=== PATIENT | female | born 1960 | race Caucasian/White ===

== ENCOUNTER 2016-12-16 14:56 | Outpatient (CLI) | payer OTHER | END 2016-12-16 14:57 | disposition home or self-care (01) | DX: M85.80 Other specified disorders of bone density and structure, unspecified site (principal) ==

== ENCOUNTER 2016-12-16 14:58 | Outpatient (CLI) | payer OTHER | END 2016-12-16 14:59 | disposition home or self-care (01) | DX: Z12.31 Encounter for screening mammogram for malignant neoplasm of breast (principal); R92.8 Other abnormal and inconclusive findings on diagnostic imaging of breast ==

== ENCOUNTER 2017-01-05 12:49 | Outpatient (CLI) | payer OTHER | END 2017-01-05 12:50 | disposition home or self-care (01) | DX: R92.8 Other abnormal and inconclusive findings on diagnostic imaging of breast (principal) ==

== ENCOUNTER 2017-01-19 09:45 | Outpatient (CLI) | payer OTHER | END 2017-01-19 09:46 | disposition home or self-care (01) | DX: N60.12 Diffuse cystic mastopathy of left breast (principal) ==

== ENCOUNTER 2018-07-26 08:29 | Outpatient (CLI) | payer OTHER ==
[2018-07-26 09:09] LABS: BASOPHILS % (AUTO) 0.4 %; EOSINOPHILS # (AUTO) 0.2 10^3/uL (0.0-0.7); EOSINOPHILS % (AUTO) 2.6 %; HGB - HEMOGLOBIN 13.1 g/dL (12.0-16.0); LYMPHOCYTES # (AUTO) 2.1 10^3/uL (1.5-3.5); LYMPHOCYTES % (AUTO) 31.7 %; MEAN CORPUSCULAR HEMOGLOBIN 31.1 pg (27.0-31.0); MEAN CORPUSCULAR HGB CONC 34.2 g/dL (32.0-36.0); MEAN CORPUSCULAR VOLUME 90.7 fL (81.0-99.0); MEAN PLATELET VOLUME 6.8 fL (7.9-10.8); MONOCYTES # (AUTO) 0.6 10^3/uL (0.0-1.0); MONOCYTES % (AUTO) 9.6 %; NEUTROPHILS # (AUTO) 3.6 10^3/uL (1.5-6.6); NEUTROPHILS % (AUTO) 55.7 %; PLT - PLATELET COUNT 290 10^3/uL (130-450); RED BLOOD COUNT 4.22 10^6/uL (4.20-5.40); RED CELL DISTRIBUTION WIDTH 14.3 % (12.0-15.0); WHITE BLOOD COUNT 6.5 x10^3/uL (4.8-10.8)
[2018-07-26 09:37] LABS: ALBUMIN 4.3 g/dL (3.2-5.5); ALBUMIN/GLOBULIN RATIO 1.6 (1.0-2.2); ALKALINE PHOSPHATASE 63 IU/L (42-121); ALT ALANINE AMINOTRANSFERASE 26 IU/L (10-60); AST ASPARTATE AMINOTRANSFERASE 22 IU/L (10-42); BILIRUBIN,TOTAL 0.6 mg/dL (0.2-1.0); BUN - BLOOD UREA NITROGEN 18 mg/dL (6-20); CARBON DIOXIDE - CO2 27 mmol/L (21-32); CHLORIDE 107 mmol/L (101-111); CHOL/HDL RATIO 3.3 (<4.4); CHOLESTEROL 258 mg/dL; CREATININE 0.8 mg/dL (0.4-1.0); GFR - MDRD 74 (>89); GLUCOSE 103 mg/dL (70-100); HDL CHOLESTEROL 78 mg/dL; LDL CHOLESTEROL,CALCULATED 167 mg/dL; LDL/HDL RATIO 2.1 (<4.4); SODIUM 141 mmol/L (135-145); VLDL CHOLESTEROL 13 mg/dL
== END 2018-07-26 08:30 | disposition home or self-care (01) ==
LOC: LAB 08:29
PROVIDERS: ATTEND Physician Assistant Medical
DX: Z00.00 Encounter for general adult medical examination without abnormal findings (principal); B02.9 Zoster without complications
CPT/HCPCS: 36415; 80053; 80061; 81599; 83721; 84443; 85025

== ENCOUNTER 2018-10-05 16:24 | Outpatient (CLI) | payer OTHER | END 2018-10-05 16:25 | disposition home or self-care (01) | LOC: LAB 16:24 | PROVIDERS: ATTEND Physician Assistant Medical | DX: Z00.00 Encounter for general adult medical examination without abnormal findings (principal) | CPT/HCPCS: 36415; 84443 ==

== ENCOUNTER 2018-10-17 16:22 | Outpatient (CLI) | payer OTHER ==
--- NOTE | 2018-10-18 08:39 | Mammography Report ---
Reason: SCREENING MAMMO Procedure Date: 10/17/2018 Accession Number: [id number] / [id number] Procedure: SHANKAR - Screening Mammo w/Sanchez CPT Code: FULL RESULT: EXAM: Screening Mammo w/Sanchez DATE: 10/17/2018 4:56 PM CLINICAL HISTORY: Screening encounter. History of late childbearing. TECHNIQUE: Bilateral CC and MLO views were obtained. COMPARISON: 01/05/2017 through 03/17/2015. FINDINGS: The breasts demonstrate scattered fibroglandular densities bilaterally. Compared to 2017 there are 3 new well-circumscribed isodense masses in the left breast. A 0.7 cm 3:00 mass 5 cm from the nipple as well as an isodense 0.9 cm and an isodense 1 cm mass centrally approximately 4 cm from the nipple. Given their well-circumscribed margins, absence of calcifications or architectural distortion, multiplicity and timeline these could represent cysts though this is not definitely established. Focused left breast ultrasound for further evaluation of all 3 masses is required. No suspicious masses, clustered microcalcifications, or regions of architectural distortion are identified in the right breast. IMPRESSION: Incomplete examination RECOMMENDATION: Additional evaluation of the left breast with focused ultrasound of all 3 findings described above. BIRADS CATEGORY 0: Incomplete examination STANDARD QUALIFYING STATEMENTS: 1. This examination was not reviewed with the aid of Computer-Aided Detection (CAD). 2. A negative or benign imaging report should not preclude biopsy if clinically suspicious findings are present. 3. Dense breasts may obscure an underlying neoplasm. 4. This examination was reviewed with the aid of 3D breast imaging (tomosynthesis).
== END 2018-10-17 16:23 | disposition home or self-care (01) ==
LOC: DI 16:22
DX: Z12.31 Encounter for screening mammogram for malignant neoplasm of breast (principal)
CPT/HCPCS: 77063; 77067

== ENCOUNTER 2018-11-08 13:02 | Outpatient (CLI) | payer OTHER ==
--- NOTE | 2018-11-08 16:02 | Mammography Report ---
Reason: ABN MAMMO Procedure Date: 11/08/2018 Accession Number: [id number] / [id number] Procedure: SHANKAR - Diag Special Views Dig LT CPT Code: FULL RESULT: EXAM: Diag Special Views Dig LT DATE: 11/08/2018 2:03 PM CLINICAL HISTORY: 58-year-old female with history of breast cysts recalled from screening for findings of multiple new left breast nodules. TECHNIQUE: Left breast spot MLO, spot CC, ML views were obtained COMPARISON: 10/15/2018 through 03/17/2015. FINDINGS: The left breast demonstrates scattered fibroglandular densities. Spot views confirm the findings of the most recent mammograms with multiple well-circumscribed isodense masses measuring 1 cm or less in the upper outer left breast. Focused left breast ultrasound is performed which demonstrates multiple simple cysts by ultrasound criteria in the left breast upper outer quadrant including well-circumscribed margins, dimensions not taller than wide, imperceptibly thin daniel and uniformly increased through transmission without evidence of internal echoes or mural nodule. Findings are consistent with simple left breast cysts. No suspicious calcifications, architectural distortion or masses are identified on mammography or on ultrasound. IMPRESSION: Benign findings RECOMMENDATION: Recommend routine annual Screening mammography unless otherwise clinically indicated. BIRADS CATEGORY 2: Benign findings STANDARD QUALIFYING STATEMENTS: 1. This examination was not reviewed with the aid of Computer-Aided Detection (CAD). 2. A negative or benign imaging report should not delay biopsy if clinically suspicious findings are present. Consider surgical consultation if warrented. More than 5% of cancers are not identified by imaging. 3. Dense breasts may obscure an underlying neoplasm. 4. This examination was reviewed with the aid of 3D imaging (tomography).
--- NOTE | 2018-11-12 07:17 | Ultrasound Report ---
Reason: ABN MAMMO Procedure Date: 11/08/2018 Accession Number: [id number] / [id number] Procedure: US - Breast Unilateral Limited CPT Code: FULL RESULT: FINDINGS: IMPRESSION: For results, please reference the Diagnostic Special Views report dated 11/08/2018.
== END 2018-11-08 13:03 | disposition home or self-care (01) ==
LOC: DI 13:02
PROVIDERS: ATTEND Physician Assistant Medical
DX: N60.12 Diffuse cystic mastopathy of left breast (principal)
CPT/HCPCS: 76642

== ENCOUNTER 2019-03-28 08:03 | Outpatient (CLI) | payer OTHER ==
[2019-03-28 08:36] LABS: ALBUMIN 4.3 g/dL (3.2-5.5); ALBUMIN/GLOBULIN RATIO 1.5 (1.0-2.2); ALKALINE PHOSPHATASE 65 IU/L (42-121); ALT ALANINE AMINOTRANSFERASE 25 IU/L (10-60); AST ASPARTATE AMINOTRANSFERASE 21 IU/L (10-42); BILIRUBIN,TOTAL 0.7 mg/dL (0.2-1.0); BUN - BLOOD UREA NITROGEN 21 mg/dL (6-20); CALCIUM 9.1 mg/dL (8.5-10.3); CARBON DIOXIDE - CO2 27 mmol/L (21-32); CHLORIDE 103 mmol/L (101-111); CHOL/HDL RATIO 3.2 (<4.4); CHOLESTEROL 262 mg/dL; CREATININE 0.7 mg/dL (0.4-1.0); GFR - MDRD 86 (>89); GLUCOSE 107 mg/dL (70-100); HDL CHOLESTEROL 81 mg/dL; LDL CHOLESTEROL,CALCULATED 163 mg/dL; SODIUM 139 mmol/L (135-145); TOTAL PROTEIN 7.2 g/dL (6.7-8.2); VLDL CHOLESTEROL 18 mg/dL
== END 2019-03-28 08:04 | disposition home or self-care (01) ==
LOC: LAB 08:03
PROVIDERS: ATTEND Physician Assistant Medical
DX: E78.5 Hyperlipidemia, unspecified (principal)
CPT/HCPCS: 36415; 80053; 80061; 83721

== ENCOUNTER 2020-01-27 18:50 | Outpatient (CLI) | payer OTHER | END 2020-01-27 18:51 | disposition home or self-care (01) | LOC: COV 18:50 | PROVIDERS: ATTEND Family Medicine | DX: R05 Cough (principal); R50.9 Fever, unspecified | CPT/HCPCS: 81599 ==

== ENCOUNTER 2020-03-02 16:45 | Outpatient (CLI) | payer OTHER | END 2020-03-02 16:46 | disposition home or self-care (01) | LOC: COV 16:45 | PROVIDERS: ATTEND Family Medicine | DX: R50.9 Fever, unspecified (principal); R06.02 Shortness of breath; M79.10 Myalgia, unspecified site; R53.83 Other fatigue; J02.9 Acute pharyngitis, unspecified; R43.8 Other disturbances of smell and taste; Z20.828 Contact with and (suspected) exposure to other viral communicable diseases | CPT/HCPCS: 81599 ==

== ENCOUNTER 2021-04-22 08:00 | Outpatient (CLI) | payer OTHER | END 2021-04-22 08:01 | disposition home or self-care (01) | LOC: LAB.N 08:00 | PROVIDERS: ATTEND Physician Assistant Medical | DX: R30.0 Dysuria (principal) | CPT/HCPCS: 87086 ==

== ENCOUNTER 2021-04-26 08:00 | Outpatient (CLI) | payer OTHER ==
[2021-04-26 22:32] LABS: BACTERIAL VAGINOSIS DNA NEGATIVE (NEGATIVE); CANDIDA GLABRATA DNA NEGATIVE (NEGATIVE); CANDIDA GROUP DNA NEGATIVE (NEGATIVE); CANDIDA KRUSEI DNA NEGATIVE (NEGATIVE); TRICHOMONAS VAGINALIS DNA NEGATIVE (NEGATIVE)
[2021-04-26 23:21] LABS: CHLAMYDIA TRACHOMATIS DNA NEGATIVE (NEGATIVE); NEISSERIA GONORRHOEAE DNA NEGATIVE (NEGATIVE); TRICHOMONAS VAGINALIS DNA NEGATIVE (NEGATIVE)
== END 2021-04-26 23:59 | disposition home or self-care (01) ==
LOC: LAB.N 08:00
PROVIDERS: ATTEND Family Medicine
DX: N76.0 Acute vaginitis (principal)
CPT/HCPCS: 87491; 87591; 87661; 87801

== ENCOUNTER 2021-05-31 15:50 | Outpatient (CLI) | payer OTHER ==
--- NOTE | 2021-06-03 12:13 | Mammography Report ---
BILATERAL DIGITAL SCREENING MAMMOGRAM 3D/2D: 05/31/2021 CLINICAL: Routine screening. Comparison is made to exams dated: 11/08/2018 mammogram, 11/08/2018 ultrasound, 10/17/2018 mammogram, 01/09/2017 ultrasound, 01/05/2017 mammogram, and 12/16/2016 mammogram - [facility]. The t issue of both breasts is heterogeneously dense. This may lower the sensitivity of mammography. There is an oval equal density mass with a spiculated margin in the right breast at 9 o'clock anterio r depth. There also is an oval low density mass with an obscured and circumscribed margin in the right breast at 12 o'clock middle depth. There is an oval equal density focal asymmetry with an indistinct margin in the left breast at 7 o'cl ock anterior depth. No other significant masses or calcifications are seen in either breast. IMPRESSION: INCOMPLETE: NEEDS ADDITIONAL IMAGING EVALUATION The oval equal density mass in the right breast at 9 o'clock anterior depth is indeterminate. Mediol ateral and spot compression views as well as additional views with possible ultrasound are recommende d. The oval low density mass in the right breast at 12 o'clock middle depth is indeterminate. Mediolate ral and spot compression views as well as additional views with possible ultrasound are recommended. The oval equal density focal asymmetry in the left breast at 7 o'clock anterior depth is indeterminat e. Mediolateral and spot compression views as well as additional views with possible ultrasound are recommended. This exam was interpreted at Station ID: [id number]. NOTE: For mammograms, a report in lay terms will be sent to the patient. Approximately 15% of breast malignancies will not be visualized mammographically. In the management of a palpable breast mass, a negative mammogram must not discourage biopsy of a clinically suspicious lesion. Electronically Signed By: David Danielson M.D. ddp/penrad:06/02/2021 08:49:25 ACR BI-RADS Category 0: Incomplete 3340F PARENCHYMAL PATTERN: (D) - The breast(s) demonstrate(s) heterogeneously dense fibroglandular parenchy ma. BI-RADS CATEGORY: (0) - 0 Mammo and [place] [id number] Immediate follow-up LATERALITY: (B)
== END 2021-05-31 15:51 | disposition home or self-care (01) ==
LOC: DI.N 15:50
DX: Z12.31 Encounter for screening mammogram for malignant neoplasm of breast (principal); N63.11 Unspecified lump in the right breast, upper outer quadrant

== ENCOUNTER 2021-06-18 07:48 | Outpatient (CLI) | payer OTHER ==
--- NOTE | 2021-06-21 16:38 | Ultrasound Report ---
LIMITED ULTRASOUND OF LEFT BREAST: 06/18/2021 CLINICAL: Short term follow up for bilateral breasts. Comparison is made to exams dated: 11/08/2018 ultrasound and 01/09/2017 ultrasound - [facility]. Color flow and real-time ultrasound of the left breast 5-7 o'clock region were performed. Phillips scal e images of the real-time examination were reviewed. No significant abnormalities were seen sonographically in the left breast. IMPRESSION: BENIGN There is no sonographic evidence of malignancy. There is no abnormality seen in the left breast to correspond with the mammography finding which like ly represents normal fibroglandular tissue. A 1 year screening mammogram is recommended. A right breast biopsy is recommended for right breast findings described in separate report. Findings and recommendations were conveyed to the patient during today's evaluation. This exam was interpreted at Station ID: [id number]. Electronically Signed By: Jimi Real M.D. aty/:06/18/2021 10:34:40 Ultrasound BI-RADS: 2 Benign BI-RADS CATEGORY: (2) - 2 RECOMMENDATION: (ANNUAL) - Recommend routine annual screening mammography. [id number] 1 year screening LATERALITY: (B)
--- NOTE | 2021-06-21 16:38 | Ultrasound Report ---
LIMITED ULTRASOUND OF RIGHT BREAST AND AXILLA: 06/18/2021 CLINICAL: Short term follow up for bilateral breasts. No prior exams were available for comparison. Color flow ultrasound of the right breast 9 o'clock, 12 o'clock, and axilla regions was performed. G ray scale images of the real-time examination were reviewed. There is a 0.6 cm x 0.4 cm x 0.5 cm irregular mass with an angular margin in the right breast at 9 o' clock anterior depth 3 cm from the nipple. This irregular mass is hypoechoic with no posterior acous tic shadowing or enhancement. This likely correlates with mammography findings. Color flow imaging demonstrates that there is no vascularity present. There also is a 1 cm x 0.8 cm x 0.9 cm oval cyst in the right breast at 12 o'clock middle depth 4 cm from the nipple. This oval cyst is hypoechoic with posterior acoustic enhancement. This correlates with mammography findings. Color flow imaging demonstrates that there is no vascularity present. No significant abnormalities were seen sonographically in the right axilla. IMPRESSION: SUSPICIOUS OF MALIGNANCY The 0.6 cm x 0.4 cm x 0.5 cm irregular mass in the right breast at 9 o'clock anterior depth is suspic ious of malignancy. An ultrasound guided biopsy is recommended. The 1 cm x 0.8 cm x 0.9 cm oval cyst in the right breast at 12 o'clock middle depth most likely is a complicated cyst and is probably benign. A follow-up ultrasound in 6 months is recommended. Findings and recommendations were discussed with the patient by Dr. Ortiz during today's examination . This exam was interpreted at Station ID: [id number]. Electronically Signed By: Jimi Real M.D. aty/:06/18/2021 10:37:40 Ultrasound BI-RADS: 4 Suspicious for malignancy BI-RADS CATEGORY: (4) - 4 None [id number] Immediate follow-up LATERALITY: ()
--- NOTE | 2021-06-21 16:38 | Mammography Report ---
BILATERAL DIGITAL DIAGNOSTIC MAMMOGRAM 3D/2D: 06/18/2021 CLINICAL: Patient returns today to evaluate a focal asymmetry in the right breast. Patient returns to day to evaluate a focal asymmetry in the left breast. Comparison is made to exams dated: 05/31/2021 mammogram, 11/08/2018 ultrasound, 11/08/2018 mammogram, 10/2018 mammogram, 01/09/2017 ultrasound, and 01/05/2017 mammogram - [facility]. The t issue of both breasts is heterogeneously dense. This may lower the sensitivity of mammography. There is a 0.7 cm irregular equal density mass with a spiculated margin in the right breast at 9 o'cl ock anterior depth. This is seen in additional views. There is architectural distortion associated with the mass. There also is a 1.3 cm oval low density mass with an obscured margin in the right breast at 12 o'cloc k middle depth. This is seen in additional views. This is less prominent. There is an oval equal density focal asymmetry with an obscured margin in the left breast at 7 o'cloc k anterior depth. This is less prominent. No other significant masses or calcifications are seen in either breast. IMPRESSION: INCOMPLETE: NEEDS ADDITIONAL IMAGING EVALUATION The 0.7 cm irregular equal density mass in the right breast at 9 o'clock anterior depth is indetermin ate. The 1.3 cm oval low density mass in the right breast at 12 o'clock middle depth is indeterminate. The oval equal density focal asymmetry in the left breast at 7 o'clock anterior depth is indeterminat e. An ultrasound is recommended for further evaluation of the above three findings and is scheduled to immediately follow this examination. This exam was interpreted at Station ID: [id number]. NOTE: For mammograms, a report in lay terms will be sent to the patient. Approximately 15% of breast malignancies will not be visualized mammographically. In the management of a palpable breast mass, a negative mammogram must not discourage biopsy of a clinically suspicious lesion. Electronically Signed By: Jimi Real M.D. aty/:06/18/2021 08:56:54 ACR BI-RADS Category 0: Incomplete 3340F PARENCHYMAL PATTERN: (D) - The breast(s) demonstrate(s) heterogeneously dense fibroglandular paramy evans. BI-RADS CATEGORY: (0) - 0 Ultrasound [id number] Immediate follow-up LATERALITY: (B)
== END 2021-06-18 07:49 | disposition home or self-care (01) ==
LOC: DI 07:48
PROVIDERS: ATTEND Physician Assistant Medical
DX: Z00.00 Encounter for general adult medical examination without abnormal findings (principal); R92.8 Other abnormal and inconclusive findings on diagnostic imaging of breast; N63.15 Unspecified lump in the right breast, overlapping quadrants; N60.01 Solitary cyst of right breast
CPT/HCPCS: 36415; 80053; 80061; 83721; 84443; 85025

== ENCOUNTER 2021-06-18 07:50 | Outpatient (CLI) | payer OTHER ==
[2021-06-18 11:05] LABS: BASOPHILS % (AUTO) 0.4 %; EOSINOPHILS # (AUTO) 0.1 10^3/uL (0.0-0.7); EOSINOPHILS % (AUTO) 1.6 %; HCT - HEMATOCRIT 41.7 % (37.0-47.0); HGB - HEMOGLOBIN 13.7 g/dL (12.0-16.0); LYMPHOCYTES # (AUTO) 2.4 10^3/uL (1.5-3.5); LYMPHOCYTES % (AUTO) 33.1 %; MEAN CORPUSCULAR HEMOGLOBIN 30.6 pg (27.0-31.0); MEAN CORPUSCULAR HGB CONC 32.9 g/dL (32.0-36.0); MEAN CORPUSCULAR VOLUME 93.3 fL (81.0-99.0); MEAN PLATELET VOLUME 8.4 fL (7.9-10.8); MONOCYTES # (AUTO) 0.7 10^3/uL (0.0-1.0); MONOCYTES % (AUTO) 9.5 %; PLT - PLATELET COUNT 293 10^3/uL (130-450); RED BLOOD COUNT 4.47 10^6/uL (4.20-5.40); RED CELL DISTRIBUTION WIDTH 13.2 % (12.0-15.0); WHITE BLOOD COUNT 7.3 x10^3/uL (4.8-10.8)
[2021-06-18 11:24] LABS: ALBUMIN 4.9 g/dL (3.2-5.5); ALBUMIN/GLOBULIN RATIO 1.7 (1.0-2.2); ALKALINE PHOSPHATASE 63 IU/L (42-121); ALT ALANINE AMINOTRANSFERASE 31 IU/L (10-60); AST ASPARTATE AMINOTRANSFERASE 25 IU/L (10-42); BILIRUBIN,TOTAL 0.8 mg/dL (0.2-1.0); BUN - BLOOD UREA NITROGEN 17 mg/dL (6-20); CALCIUM 9.6 mg/dL (8.5-10.3); CARBON DIOXIDE - CO2 27 mmol/L (21-32); CHLORIDE 105 mmol/L (101-111); CHOL/HDL RATIO 3.4 (<4.4); CHOLESTEROL 293 mg/dL; CREATININE 0.8 mg/dL (0.4-1.0); GFR - MDRD 73 (>89); GLUCOSE 111 mg/dL (70-100); HDL CHOLESTEROL 87 mg/dL; LDL CHOLESTEROL,CALCULATED 187 mg/dL; LDL/HDL RATIO 2.1 (<4.4); POTASSIUM 3.9 mmol/L (3.5-5.0); SODIUM 143 mmol/L (135-145); TOTAL PROTEIN 7.8 g/dL (6.7-8.2); TRIGLYCERIDES 93 mg/dL; VLDL CHOLESTEROL 19 mg/dL
[2021-06-18 11:35] LABS: THYROID STIMULATING HORMONE 3.36 uIU/mL (0.34-5.60)
== END 2021-06-18 07:51 | disposition home or self-care (01) ==
LOC: LAB 07:50
PROVIDERS: ATTEND Physician Assistant Medical
DX: Z00.00 Encounter for general adult medical examination without abnormal findings (principal)
CPT/HCPCS: 36415; 80053; 80061; 83721; 84443; 85025

== ENCOUNTER 2021-06-25 08:47 | Outpatient (CLI) | payer OTHER ==
[~2021-06-25 08:47] MED LIST: BUFFERED LIDOCAINE 10 ML SYRINGE ONE; LIDOCAINE MPF 1%-EPI 1:200000 30 ML VIAL ONE
[2021-06-25] MEDS ORDERED: BUFFERED LIDOCAINE 10 ML SYRINGE IU ONE (10:35)
[2021-06-25] MEDS ORDERED: LIDOCAINE MPF 1%-EPI 1:200000 30 ML VIAL SUBQ ONE (11:00)
--- NOTE | 2021-06-28 06:51 | Mammography Report ---
UNILATERAL RIGHT DIGITAL DIAGNOSTIC MAMMOGRAM 3D/2D: 06/25/2021 CLINICAL: Post right breast ultrasound biopsy, clip placment imaging. Comparison is made to exams dated: 06/18/2021 ultrasound, 06/18/2021 mammogram, 05/31/2021 mammogram, mammogram, and 06/25/2021 ultrasound biopsy - [facility]. The tissue of rig ht breast is heterogeneously dense. This may lower the sensitivity of mammography. There is a marker clip in the right breast at 10 o'clock middle depth. This marker clip placement is migrated from the biopsy site by approximately 1.8 cm posteriorly and 2.0 cm superiorly. No other significant masses or calcifications are seen in the breast. IMPRESSION: POST PROCEDURE MAMMOGRAM FOR MARKER PLACEMENT Marker clip placement in the right breast at 10 o'clock middle depth is migrated from biopsy site, wh ich may be secondary to the accordian effect or possibly discrepency between ultrasound and mammograp hic findings. Close correlation with biopsy results is recommended and repeat biopsy with stereotacti c guidance could be performed if necessary. This exam was interpreted at Station ID: [id number]. NOTE: For mammograms, a report in lay terms will be sent to the patient. Approximately 15% of breast malignancies will not be visualized mammographically. In the management of a palpable breast mass, a negative mammogram must not discourage biopsy of a clinically suspicious lesion. Electronically Signed By: Yoan Barreto M.D. ar/:06/25/2021 14:31:17 ACR BI-RADS Category Post-procedure mammogram for marker placement PARENCHYMAL PATTERN: (D) - The breast(s) demonstrate(s) heterogeneously dense fibroglandular sandy evans. BI-RADS CATEGORY: () - Unspecified - other no recall/no msg LATERALITY: (B)
--- NOTE | 2021-06-30 07:38 | Ultrasound Report ---
ULTRASOUND GUIDED BIOPSY RIGHT BREAST USING VACUUM DEVICE WITH MARKING DEVICE INSERTED AND POST DIGIT AL MAMMOGRAPHIC AND ULTRASOUND IMAGIN06/25/2021 CLINICAL: Right breast mass. PATIENT CONSENT: Risks (minor bleeding, infection, vasovagal reaction and repeat procedure), benefits and alternatives were explained to the patient and written informed consent was obtained. Correlation is made to exams dated: 06/18/2021 ultrasound, 06/18/2021 mammogram, 05/31/2021 mammogram, 11/08/2018 mammogram, 06/25/2021 mammogram, and [facility] An ultrasound guided biopsy using real-time ultrasound was performed for the 0.6 cm x 0.4 cm x 0.5 cm mass located in the right breast at 9 o'clock anterior depth 3 cm from the nipple. This was describ ed on the previous ultrasound report. The skin was prepped in the usual manner. Local anesthetic wa s administered to the access site. A skin chantell was made in the breast. The abnormality was approach ed from the lateral aspect. A 12 gauge biopsy needle was placed adjacent to the abnormality under ul trasound guidance. Once the needle was documented to be in the correct location, three specimens wer e obtained using the Mammotome biopsy system. A clip was inserted into the biopsy cavity. A sterile dressing was applied to the access site. Post procedure digital mammographic and ultrasound imaging was obtained. The specimens were sent to the laboratory for pathological analysis. The lesion was poorly visualized after the first pass of the biopsy device, and may have been cystic in nature with collapse during the biopsy. IMPRESSION: ULTRASOUND GUIDED BIOPSY BENIGN Ultrasound guided biopsy of the 0.6 cm x 0.4 cm x 0.5 cm mass in the right breast at 9 o'clock anteri or depth 3 cm from the nipple was successful. Pathology indicates benign "fibrocystic changes including sclerosing adenosis with microcalcification s, usual ductal hyperplasia and small cysts. Negative for in situ and invasive malignancy." Post-procedure mammogram indicates that the biopsy clip is not adjacent to the previously seen mass m ammographically. While this may be due to migration of the clip after the biopsy, it is suspected milly t the diagnostic ultrasound findings and biopsied lesion may have represented a separate abnormality from the mammographic finding in the same general area. Do to the discrepency in clip positioning, a stereotactic biopsy is recommended for the previously described 0.7 cm irregular equal density mass i n the right breast 9 o'clock anterior depth. Future imaging is recommended as follows: 12/19/2021 right breast ultrasound for follow up of the com plicated cyst at the 12 o'clock position. A message regarding the findings and recommendation was left with the office staff of Alda Villalta PA-C at the time of this dictation. This exam was interpreted at Station ID: [id number]. Yoan Barreto M.D. ar/:06/29/2021 16:58:33 BI-RADS CATEGORY: () - None [id number] Immediate follow-up LATERALITY: ()
== END 2021-06-25 08:48 | disposition home or self-care (01) ==
LOC: DI 08:47
PROVIDERS: ATTEND Physician Assistant Medical
DX: N60.21 Fibroadenosis of right breast (principal)
CPT/HCPCS: 19083

== ENCOUNTER 2021-07-13 10:03 | Outpatient (CLI) | payer OTHER ==
--- NOTE | 2021-07-21 07:54 | Mammography Report ---
DIGITAL TOMOGRAPHIC MAMMOGRAPHY GUIDED STEREOTACTIC GUIDED BIOPSY RIGHT BREAST USING VACUUM DEVICE WI TH MARKING DEVICE INSERTED AND POST DIGITAL MAMMOGRAPHIC IMAGIN07/13/2021 CLINICAL: Right breast stereotactic biopsy. PATIENT CONSENT: Risks (minor bleeding, infection, vasovagal reaction and repeat procedure), benefits and alternatives were explained to the patient and written informed consent was obtained. Correlation is made to exams dated: 06/25/2021 ultrasound biopsy, 06/25/2021 mammogram, 06/18/2021 ultr asound, 06/18/2021 ultrasound, 06/18/2021 mammogram, and 05/31/2021 mammogram - [facility]. A stereotactic guided biopsy was performed for the concerning spiculated oval mass located in the rig ht breast at 9 o'clock middle depth. This was described on the previous mammography report. The ski n was prepped in the usual manner. Local anesthetic was administered to the access site. A small in cision was made in the breast. The abnormality was approached from the lateral aspect using an uprig ht digital tomographic mammography unit. A 12 gauge biopsy needle was placed adjacent to the abnorma lity under computer guidance and confirmatory stereotactic mammography images were obtained to docume nt needle placement. Once the needle was documented to be in the correct location, five specimens we re obtained using the Mark43 system. A Hydromark clip was inserted into the biopsy cavity. A sk in closure strip and a sterile dressing were applied to the access site. Post procedure digital mamm ographic imaging demonstrates the location device at the targeted area and partial removal of the abn ormality. The specimens were sent to the laboratory for pathological analysis. IMPRESSION: STEREOTACTIC GUIDED BIOPSY MALIGNANT Stereotactic guided biopsy of the mass in the right breast at 9 o'clock middle depth was successful. 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 P athology results are concordant with imaging findings. A surgical/oncologic consultation is recommen ded. Additionally, recommend follow-up right ultrasound in December 2021 for previously described, separat e probably benign complicated cyst at the 12 o'clock position in the right breast. This exam was interpreted at Station ID: [id number]. David Real M.D., ddp,aty/:07/20/2021 18:48:26 BI-RADS CATEGORY: () - Unspecified - other recall n/a LATERALITY: (B)
== END 2021-07-13 10:04 | disposition home or self-care (01) ==
LOC: DI 10:03
PROVIDERS: ATTEND Physician Assistant Medical
DX: C50.811 Malignant neoplasm of overlapping sites of right female breast (principal); Z17.1 Estrogen receptor negative status [ER-]
CPT/HCPCS: 19081

== ENCOUNTER 2021-09-20 07:51 | Day surgery (SDC) | payer OTHER ==
[2021-09-20] MEDS ORDERED: BUFFERED LIDOCAINE 10 ML SYRINGE ONE (08:26)
[2021-09-20] MEDS ORDERED: LIDOCAINE 1%-EPI 1:100000 20 ML MDV ONE (08:27)
[2021-09-20] MEDS ORDERED: CEFAZOLIN SODIUM IN 0.9 % NACL 2 GM/100 ML BAG IV ONE (09:25)
[2021-09-20] MEDS ORDERED: LIDOCAINE 2%-EPI 1:100000 20 ML MDV ONE (11:18)
[2021-09-20] MEDS ORDERED: BUPIVACAINE 0.25% PF 10 ML VIAL ONE (11:18)
[2021-09-20] MEDS ORDERED: LIDOCAINE-MPF 2% 5 ML VIAL ONE (11:19)
[2021-09-20] MEDS ORDERED: PROPOFOL 200 MG/20 ML VIAL IVP ONE (11:19)
[2021-09-20] MEDS ORDERED: MIDAZOLAM 2 MG/2 ML VIAL ONE (11:19)
[2021-09-20] MEDS ORDERED: fentaNYL 100 MCG/2 ML VIAL ONE (11:19)
[2021-09-20] MEDS ORDERED: LACTATED RINGERS 1,000 ML IV ONE ×2 (11:30→13:09)
[2021-09-20] MEDS ORDERED: ONDANSETRON 4 MG/2 ML VIAL ONE (12:07)
[2021-09-20] MEDS ORDERED: DEXAMETHASONE 4 MG/ML VIAL ONE (12:07)
[2021-09-20] MEDS ORDERED: ATROPINE ABBOJECT 1 MG/10 ML SYRINGE IVP PRN (12:27)
[2021-09-20] MEDS ORDERED: fentaNYL 100 MCG/2 ML VIAL IVP PRN (12:27)
[2021-09-20] MEDS ORDERED: ePHEDrine 50 MG/ML VIAL IVP PRN (12:27)
[2021-09-20] MEDS ORDERED: MORPHINE 2 MG/ML CARPUJECT IVP PRN (12:27)
[2021-09-20] MEDS ORDERED: NALOXONE 0.4 MG/ML VIAL IVP PRN (12:27)
[2021-09-20] MEDS ORDERED: METOCLOPRAMIDE 10 MG/2 ML VIAL IVP PRN (12:27)
[2021-09-20] MEDS ORDERED: HYDROmorphone 0.5 MG/0.5 ML SYRINGE IVP PRN (12:27)
[2021-09-20] MEDS ORDERED: ONDANSETRON 4 MG/2 ML VIAL IVP PRN ×2 (12:27→13:34)
--- NOTE | 2021-09-20 12:27 | ANESTHESIA ---
Pre-Anesthesia VS, & Labs - Diagnosis BX proven, R breast CA - Procedure R breast lumpectomy, SN dissection Vital Signs: Temp Pulse Resp BP Pulse Ox 36.3 C L 79 14 99/57 L 95 09/20/21 08:25 09/20/21 08:25 09/20/21 08:25 09/20/21 08:25 09/20/21 08:25 Height: 4 ft 10 in Weight (kg): 60 kg Body Mass Index: 27.6 BMI Classification: Overweight - NPO >8 hours - Is Patient ?: No - Lab Results Lab results reviewed: No Home Medications and Allergies Home Medications: Ambulatory Orders Cholecalciferol [Vitamin D3] 25 mcg PO DAILY 09/08/21 Multivitamin 1 each PO DAILY 09/08/21 Vitamin E 400 unit PO DAILY 09/08/21 diphenhydrAMINE [Benadryl] 25 mg PO QPM PRN 09/08/21 estradioL vaginal [Estrace vaginal] 1 applic VG QPM 09/08/21 hydrOXYzine HCL [Hydroxyzine HCl] 25 mg PO TID PRN 08/16/21 Cholecalciferol [Vitamin D3] 25 mcg PO DAILY 09/08/21 Multivitamin 1 each PO DAILY 09/08/21 Vitamin E 400 unit PO DAILY 09/08/21 diphenhydrAMINE [Benadryl] 25 mg PO QPM PRN 09/08/21 estradioL vaginal [Estrace vaginal] 1 applic VG QPM 09/08/21 Allergies/Adverse Reactions: Allergies Allergy/AdvReac Type Severity Reaction Status Date / Time codeine Allergy heart Verified 09/08/21 13:04 racing Sulfa (Sulfonamide Allergy Rash Verified 09/08/21 13:04 Antibiotics) oxycodone [From Percocet] AdvReac Nausea Verified 09/08/21 13:04 Anes History & Medical History - Anesthetic History Anesthesia Complications: reports: No previous complications Family history of Anesthesia Complications: Denies Family history of Malignant Hyperthermia: Denies - Medical History Cardiovascular: reports: High cholesterol, Murmur Pulmonary: reports: None Gastrointestinal: reports: Colon polyps Urinary: reports: None Neuro: reports: None Musculoskeletal: reports: None Endocrine/Autoimmune: reports: None Skin: reports: None Smoking Status: Never smoker - Surgical History General: reports: Colonoscopy Gynecologic: reports: section Exam General: Alert, Oriented x3, Cooperative Dental: WNL Mouth Openin Fingerbreadth Neck Mobility: Normal Mallampati classification: II Thyromental Distance: 4-6 cm Respiratory: Lungs clear, Normal breath sounds, No respiratory distress Cardiovascular: Regular rate Neurological: Normal speech Mental/Cognitive Status: Alert/Oriented X3, Normal for patient Cognitive Status: Within normal limits Plan Anesthesia Type: General Consent for Procedure(s) Verified and Reviewed: Yes Code Status: Attempt Resuscitation ASA classification: 3-Severe systemic disease Is this case an emergency?: No
[2021-09-20] MEDS ORDERED: LACTATED RINGERS 1,000 ML IV SCH (13:00)
[2021-09-20] MEDS ORDERED: IBUPROFEN 600 MG TABLET PO PRN (13:34)
[2021-09-20] MEDS ORDERED: oxyCODONE 5 MG TABLET PO PRN (13:34)
[2021-09-20] MEDS ORDERED: ACETAMINOPHEN 325 MG TABLET PO PRN (13:34)
--- NOTE | 2021-09-20 13:46 | OPERATIVE REPORT ---
Operative Report - General Procedure Date: 09/20/21 Planned Procedure: Right breast lumpectomy and sentinel node biopsy Pre-Op Diagnosis: Biopsy-proven right breast cancer Procedure Performed: Right breast lumpectomy and sentinel node biopsy Post Op Diagnosis: Biopsy-proven right breast cancer - Procedure Note Primary Surgeon: Caryn Anesthesia Provider: IDALIA Marrufo Anesthesia Technique: General LMA Pathology: 1. [place] node #1 - 10 sec count TNTC 2. [place] node #2 - 10 sec count [id number] 3. Right breast specimen marked for orientation
[2021-09-20] MEDS ORDERED: SCOPOLAMINE PATCH TOP ONE (14:32)
[2021-09-20 14:59] VITALS: BP 122/60
--- NOTE | 2021-09-20 15:33 | Nuclear Medicine Report ---
PROCEDURE: Lymph Node Scintigraphy INDICATIONS: RIGHT BREAST CA RADIOPHARMACEUTICAL: 0.5-1.0 mCi Millipore filtered Tc-99m sulfur colloid. TECHNIQUE: The area around the nipple was prepped and draped in a sterile fashion. Tc-99m sulfur colloid was in jected intra-dermally in the outer edge of the areola in the right breast. Images were obtained subs equently. A body contour outline was obtained. FINDINGS: There is/are 4 lymph node(s) in the ipsilateral axilla, the sentinel node is marked on the skin and t he images for referring physician. IMPRESSION: Administration of radiotracer into the right breast periareolar region for intra-operati ve sentinel lymph node localization. Reviewed by: Braulio An MD on 09/20/2021 3:32 PM PST Approved by: Braulio An MD on 09/20/2021 3:32 PM PST Station ID: [id number]
--- NOTE | 2021-09-20 15:54 | ANESTHESIA POST OP EVALUATION ---
Anesthesia Post Eval - Post Anesthesia Eval Vitals: Last Vital Signs Temp 36.3 C L 09/20/21 14:57 Pulse 75 09/20/21 14:57 Resp 15 09/20/21 14:57 BP 122/60 09/20/21 14:57 Pulse Ox 97 09/20/21 14:57 CV Function Including HR & BP: Stable Pain Control: Satisfactory Nausea & Vomiting: Negative Mental Status: Baseline Respiratory Status: Airway Patent Hydration Status: Satisfactory Anesthesia Complications: None
--- NOTE | 2021-09-22 09:59 | Mammography Report ---
DIGITAL TOMOGRAPHIC MAMMOGRAPHY GUIDED WIRE LOCALIZATION RIGHT BREAST WITH POST DIGITAL MAMMOGRAPHIC IMAGIN09/20/2021 CLINICAL: Post wire placement. Correlation is made to exams dated: 07/13/2021 stereotactic biopsy, 06/25/2021 ultrasound biopsy, 2020 mammogram, 06/18/2021 ultrasound, and 06/18/2021 ultrasound - [facility]. A wire localization was performed for the hourglass marker clip located in the right breast at 9 o'cl ock anterior depth. The skin was prepped in the usual manner. Local anesthetic was administered to the access site. The localization was approached from the lateral aspect using an upright digital tomographic mammography unit. A J-hook wire was inserted into the targeted area. The patient received additional local ane sthetic during the procedure. A sterile dressing was applied to the access site. Post placement digital mammographic imaging demonstrates the tip passes through the targeted area. Th e wire passes the clip 2 cm measured on the CC view. IMPRESSION: WIRE LOCALIZATION Wire localization for the hourglass marker clip in the right breast at 9 o'clock anterior depth was s uccessful with no apparent post procedure complications. The wire passes the clip 2 cm measured on the CC view. This exam was interpreted at Station ID: [id number]. Sami Ray M.D. slc/:09/20/2021 10:36:08 BI-RADS CATEGORY: () - Unspecified - other recall n/a LATERALITY: (B)
--- NOTE | 2021-09-22 09:59 | Mammography Report ---
SPECIMEN: 09/20/2021 CLINICAL: Post right lumpectomy. Right breast specimen. Correlation is made to exams dated: 09/20/2021 localization, 07/13/2021 stereotactic biopsy, 06/25/2021 ultrasound biopsy, 06/25/2021 mammogram, and 06/18/2021 ultrasound - [facility]. Right breast lumpectomy specimen contains the hourglass biopsy clip and the localization wire. IMPRESSION: SPECIMEN Right breast lumpectomy specimen contains the hourglass biopsy clip. Exam findings were discussed with the breast surgeon shortly after image acquisition. This exam was interpreted at Station ID: [id number]. Sami Ray M.D. slc/:09/22/2021 08:38:10 BI-RADS CATEGORY: () - Unspecified - other recall n/a LATERALITY: (B)
== END 2021-09-20 07:52 | disposition home or self-care (01) ==
LOC: DI 07:51
PROVIDERS: ATTEND Surgery
PROC: 0HBT0ZZ Excision of Right Breast, Open Approach (ICD-10-PCS; principal; 2021-09-20 11:15)
DX: C50.811 Malignant neoplasm of overlapping sites of right female breast (principal); Z17.1 Estrogen receptor negative status [ER-]; D05.11 Intraductal carcinoma in situ of right breast; E03.9 Hypothyroidism, unspecified; E78.5 Hyperlipidemia, unspecified; M85.80 Other specified disorders of bone density and structure, unspecified site
CPT/HCPCS: 19125; 19281; 38525; 76098; 78195; J0690; J3490; J7120

== ENCOUNTER 2022-09-21 07:45 | Outpatient (CLI) | payer OTHER ==
--- NOTE | 2022-09-21 12:27 | Mammography Report ---
BILATERAL DIGITAL DIAGNOSTIC MAMMOGRAM 3D/2D WITH SPOT COMPRESSION: 09/21/2022 CLINICAL: Personal history of right breast cancer. Due for bilateral. Comparison is made to exams dated: 06/25/2021 mammogram, 06/18/2021 mammogram, 05/31/2021 mammogram, 11/08/2018 mammogram, 10/17/2018 mammogram - [facility], and 08/12/2021 breast MRI - [facility]. Both breasts are heterogeneously dense, which may obscure small masses (category c / 51-75% glandular tissue). There are benign post operative findings and biopsy clip in the right breast. No significant masses, calcifications, or other findings are seen in either breast. There has been no significant interval change. IMPRESSION: BENIGN There is no mammographic evidence of malignancy. A 1 year screening mammogram is recommended. This exam was interpreted at Station ID: [id number]. NOTE: For mammograms, a report in lay terms will be sent to the patient. Approximately 15% of breast malignancies will not be visualized mammographically. In the management of a palpable breast mass, a negative mammogram must not discourage biopsy of a clinically suspicious lesion. Electronically Signed By: Maddy taylor/madhav:09/21/2022 08:30:34 ACR BI-RADS Category 2: Benign Finding(s) 3342F PARENCHYMAL PATTERN: (D) - The breast(s) demonstrate(s) heterogeneously dense fibroglandular sandy evans. BI-RADS CATEGORY: (2) - 2 RECOMMENDATION: (ANNUAL) - Recommend routine annual screening mammography. [id number] 1 year screening LATERALITY: (B)
== END 2022-09-21 07:46 | disposition home or self-care (01) ==
LOC: DI 07:45
PROVIDERS: ATTEND Physician Assistant
DX: C50.911 Malignant neoplasm of unspecified site of right female breast (principal)

== ENCOUNTER 2023-11-17 15:11 | Outpatient (CLI) | payer OTHER ==
--- NOTE | 2023-11-20 11:52 | Mammography Report ---
BILATERAL DIGITAL SCREENING MAMMOGRAM 3D/2D: 11/17/2023 CLINICAL: Routine screening. Personal history of right breast cancer. Comparison is made to exams dated: 09/21/2022 mammogram, 06/25/2021 mammogram, 06/18/2021 mammogram, mammogram, 11/08/2018 mammogram, and 10/17/2018 mammogram - [facility]. There are scattered areas of fibroglandular density in both breasts (category b / 25%-50% glandular t issue). There are benign post operative findings and biopsy clip in the right breast. No significant masses, calcifications, or other findings are seen in either breast. There has been no significant interval change. IMPRESSION: BENIGN There is no mammographic evidence of malignancy. A 1 year screening mammogram is recommended. This exam was interpreted at Station ID: [id number]. NOTE: For mammograms, a report in lay terms will be sent to the patient. Approximately 15% of breast malignancies will not be visualized mammographically. In the management of a palpable breast mass, a negative mammogram must not discourage biopsy of a clinically suspicious lesion. Electronically Signed By: aSrah manjarrez/madhav:11/20/2023 10:14:37 ACR BI-RADS Category 2: Benign Finding(s) 3342F PARENCHYMAL PATTERN: (A) - The breast(s) demonstrate(s) scattered fibroglandular densities. BI-RADS CATEGORY: (2) - 2 Mammogram [id number] 1 year screening LATERALITY: (B)
== END 2023-11-17 15:12 | disposition home or self-care (01) ==
LOC: DI 15:11
PROVIDERS: ATTEND Surgery
DX: Z12.31 Encounter for screening mammogram for malignant neoplasm of breast (principal); Z85.3 Personal history of malignant neoplasm of breast; R92.323 Mammographic fibroglandular density, bilateral breasts

== ENCOUNTER 2023-12-26 09:55 | Day surgery (SDC) | payer OTHER ==
[2023-12-26] MEDS: LACTATED RINGERS 1,000 ML IV ONE ×2 (10:10→11:34)
--- NOTE | 2023-12-26 10:49 | ANESTHESIA ---
Pre-Anesthesia VS, & Labs - Diagnosis family history of colon cancer, screening exam - Procedure colonoscopy Vital Signs: Temp Pulse Resp BP Pulse Ox O2 Flow Rate 36.2 C L 78 16 103/65 94 12/26/23 10:10 12/26/23 10:10 12/26/23 10:10 12/26/23 10:10 12/26/23 10:10 Height: 4 ft 10 in Weight (kg): 63.8 kg Body Mass Index: 29.4 BMI Classification: Overweight - NPO >8 hours - Is Patient ?: No Home Medications and Allergies Cholecalciferol [Vitamin D3] 25 mcg PO DAILY 09/08/21 Multivitamin 1 each PO DAILY 09/08/21 Vitamin E 400 unit PO DAILY 09/08/21 diphenhydrAMINE [Benadryl] 25 mg PO QPM PRN 09/08/21 Allergies/Adverse Reactions: Allergies Allergy/AdvReac Type Severity Reaction Status Date / Time codeine Allergy heart Verified 09/08/21 13:04 racing Sulfa (Sulfonamide Allergy Rash Verified 09/08/21 13:04 Antibiotics) oxycodone [From Percocet] AdvReac Nausea Verified 09/08/21 13:04 Anes History & Medical History - Anesthetic History Anesthesia Complications: reports: No previous complications - Medical History Cardiovascular: reports: High cholesterol Pulmonary: reports: None Gastrointestinal: reports: Colon polyps Urinary: reports: None Neuro: reports: None Musculoskeletal: reports: None Endocrine/Autoimmune: reports: None Skin: reports: None Smoking Status: Never smoker Psychosocial: reports: Alcohol (1 drink per week) History of Cancer?: Yes (radiation) - Surgical History General: reports: Colonoscopy Gynecologic: reports: section, Other Exam General: Alert, Oriented x3, Cooperative, No acute distress Dental: WNL Mouth Openin Fingerbreadth Neck Mobility: Normal Mallampati classification: I Thyromental Distance: 4-6 cm Mental/Cognitive Status: Alert/Oriented X3, Normal for patient Plan Anesthesia Type: General, Total IV Consent for Procedure(s) Verified and Reviewed: Yes Code Status: Attempt Resuscitation ASA classification: 2-Mild systemic disease Is this case an emergency?: No
[2023-12-26] MEDS ORDERED: PROPOFOL 500 MG/50 ML 500 MG/50 ML VIAL ONE (11:08)
[2023-12-26] MEDS ORDERED: GLYCOPYRROLATE 1 MG/5 ML VIAL ONE (11:21)
--- NOTE | 2023-12-26 11:43 | ANESTHESIA POST OP EVALUATION ---
Anesthesia Post Eval - Post Anesthesia Eval Vitals: Last Vital Signs Temp 36.5 C 12/26/23 11:34 Pulse 87 12/26/23 11:34 Resp 16 12/26/23 11:34 BP 127/80 12/26/23 11:34 Pulse Ox 97 12/26/23 11:34 O2 Flow Rate CV Function Including HR & BP: Stable Pain Control: Satisfactory Nausea & Vomiting: Negative Mental Status: Baseline Respiratory Status: Airway Patent Hydration Status: Satisfactory Anesthesia Complications: None
[2023-12-26] MEDS: METOCLOPRAMIDE 10 MG/2 ML VIAL ONE (11:59)
[2023-12-26 12:25] VITALS: BP 107/86; O2SAT 97
== END 2023-12-26 09:56 | disposition home or self-care (01) ==
LOC: SDS 09:55
PROVIDERS: ATTEND Surgery
PROC: 0DBN8ZZ Excision of Sigmoid Colon, Via Natural or Artificial Opening Endoscopic (ICD-10-PCS; 2023-12-26)
PROC: 0DBM8ZZ Excision of Descending Colon, Via Natural or Artificial Opening Endoscopic (ICD-10-PCS; principal; 2023-12-26 11:30)
DX: Z12.11 Encounter for screening for malignant neoplasm of colon (principal); K63.5 Polyp of colon; Z80.0 Family history of malignant neoplasm of digestive organs; Z85.3 Personal history of malignant neoplasm of breast
CPT/HCPCS: 45380; 45385; J2765; J7120